=== PATIENT | female | born 1980 | race Caucasian/White ===

== ENCOUNTER 2016-12-17 09:45 | Day surgery (SDC) | payer OTHER ==
[~2016-12-17] VITALS: Ht 160 cm; Wt 72.0 kg
[2016-12-17] VITALS (8 sets, daily range): BP systolic 100–141; BP diastolic 68–90; PULSE 80–96; RESP 18; TEMP 97.6–98.1; O2SAT 97–98
[~2016-12-17 09:45] MED LIST: HYDR25R PR; Z.0.NO CURRENT MEDS
[2016-12-17] MEDS ORDERED: GELATIN 12 MM/7 MM FOAM ONE (09:46)
[2016-12-17] MEDS ORDERED: SODIUM CHLOR 0.9% 1000 ML IV SCH (10:00)
[2016-12-17] MEDS ORDERED: KELN1TAB PO (10:06)
[2016-12-17] MEDS ORDERED: PANT40TA3 PO (10:06)
[2016-12-17] MEDS ORDERED: SPIR100T PO (10:06)
[2016-12-17] MEDS ORDERED: DICY20TA10 PO (10:06)
[2016-12-17] MEDS ORDERED: LIDOCAINE HCL 1% 20 ML VIAL ONE (11:35)
[2016-12-17] MEDS ORDERED: MIDAZOLAM HCL 2 MG/2 ML VIAL ONE ×2 (12:08→12:17)
[2016-12-17] MEDS ORDERED: THROMBIN (TOPICAL) 5,000 UNIT VIAL ONE (12:29)
--- NOTE | 2016-12-17 12:37 | PD.RAD ---
Post CT Procedure Prog Note Pre Procedure Diagnosis: (1) Liver mass, right lobe Post Procedure Diagnosis: (1) Liver mass, right lobe Procedure Date: Dec 17, 2016 Supervising Radiologist: Vamshi Moore JR Anesthesia: Conscious Sedation Plan of Activity Patient to Unit: [facility] See PACS Report for procedural detail/treatment Biopsy Imaging Guidance: CT Biopsy Procedure: Liver Specimen: Core Biopsy Findings: 3 core samples of inferior right lobe liver lesion. Gelfoam and thrombin utilized. No hemorrhage on post CT images. Jr. Oscar,Vamshi Smith MD Dec 17, 2016 12:37
[2016-12-17] MEDS ORDERED: HYDROmorphone HCL PF 2 MG/ML VIAL ONE (12:38)
[2016-12-17] MEDS ORDERED: KETOROLAC TROMETHAMINE 60 MG/2 ML (IM) VIAL IM ONE (13:39)
[2016-12-17] MEDS ORDERED: HYDROmorphone HCL PF 1 MG/ML VIAL IV ONE (13:45)
[2016-12-17] MEDS ORDERED: KETOROLAC TROMETHAMINE 30 MG/ML (IVP) VIAL IVP ONE (13:45)
[2016-12-17] MEDS ORDERED: ONDANSETRON HCL 4 MG/2 ML VIAL ONE (13:49)
[2016-12-17] MEDS ORDERED: ONDANSETRON HCL 4 MG/2 ML VIAL IV ONE (14:00)
--- NOTE | 2016-12-17 14:50 | RADRPT ---
EXAM DATE/TIME: 12/17/2016 12:11 [place] COMPARISON: No previous studies available for comparison. INDICATIONS : Liver mass. SEDATION TIME: 20 minutes BIOPSY SITE: Right flank MEDICATION(S): 1.) 4 mg midazolam (Versed) IV 2.) 1 mg hydromorphone (Dilaudid) IV 3.) 200 mcg fentanyl (Sublimaze) IV DEVICE(S): 1.) 20 gauge Temno core biopsy needle MEDICAL HISTORY : Inflammatory bowel disease. Gastroesophageal reflux disease. SURGICAL HISTORY : None. ENCOUNTER: Initial ACUITY: 1 day PAIN SCORE: 0/10 LOCATION: Right upper quadrant A total of two core specimen(s) were obtained and sent to the laboratory for pathologic evaluation. PROCEDURE: 1. CT guided liver biopsy. 2. Conscious sedation with continuous EKG and oximetry monitoring. 3. EKG and oximetry remained stable throughout the procedure. Prior to the procedure informed consent was obtained. Any appropriate prior imaging studies were rev iewed. The mass within segment 6 posteriorly was targeted during the biopsy. Prior MRI was reviewed. Using automated exposure control and adjustment of the mA and/or kV according to patient size, radiat ion dose was kept as low as reasonably achievable to obtain optimal diagnostic quality images. DICOM format image data is available electronically for review and comparison. The site was prepped in a sterile fashion. Full sterile technique was used, including cap, mask, fátima rile gloves and gown and a large sterile sheet. Hand hygiene and 2% chlorhexidine and/or betadine/al cohol prep was utilized per protocol for cutaneous antisepsis. The skin and subcutaneous tissues wer e infiltrated with local anesthetic solution. With CT guidance the previously identified target was localized. Biopsy was performed using the presc ribed needle as above. The tract was purposely performed to traverse normal liver prior to entering t he lesion to help maintain hemostasis. Gelfoam and thrombin was utilized. Adequate hemostasis was obt ained with compression at the puncture site. Follow-up CT scan reveals no hemorrhage. The patient tolerated the procedure well and there were no complications. The patient was returned to the Radiology Outpatient Unit in stable condition. CONCLUSION: Uncomplicated CT guided biopsy of a segment 6 hepatic lesion. Vamshi Moore Jr., MD on December 17, 2016 at 14:32 Board Certified Radiologist. This report was verified electronically.
== END 2016-12-17 17:32 | disposition home or self-care (01) ==
LOC: HRAD 09:45 → HRIP 09:49 → HRAD 17:32
PROVIDERS: ATTEND Internal Medicine
DX: K76.0 Fatty (change of) liver, not elsewhere classified (principal); R93.2 Abnormal findings on diagnostic imaging of liver and biliary tract; K21.9 Gastro-esophageal reflux disease without esophagitis
CPT/HCPCS: 47000; 77012; 88307; J1170; J1885; J2250; J2405; J3010